=== PATIENT | male | born 1960 | race Caucasian/White ===

== ENCOUNTER 2016-12-09 05:04 | Emergency (ER) | payer MEDICARE, OTHER ==
[~2016-12-09] VITALS: Ht 177.8 cm; Wt 85.9 kg
[~2016-12-09 05:04] MED LIST: BISA-57 PR; CETI10CA PO; IBUP-1542 PO; LOSA50TA2 PO; MELO-174 PO; OMEP40CA6 PO; POLY17PO6 PO; SIMV40TA2 PO; ZOLP5TAB PO
[2016-12-09 05:10] VITALS: Ht 177.8 cm; Wt 85.9 kg
[2016-12-09] MEDS ORDERED: ONDANSETRON (ODT) 4 MG TAB ODT STA (06:19)
[2016-12-09] MEDS ORDERED: MECL12.574 PO (06:21)
[2016-12-09] MEDS ORDERED: ONDA4TAB14 PO (06:21)
--- NOTE | 2016-12-09 06:22 | ERD ---
ER Documentation Chief Complaint Date/Time DATE: 12/09/16 TIME: 06:22 Chief Complaint dizziness w/vomiting since 2am , hypertension, headache HPI Patient is a 48-year-old male with hypertension who presents with dizziness. The patient said that at 2 AM he woke up and he turned his head to the right side and then "everything started spinning". He had nausea and sweating at the time. His blood pressure was elevated at 168/112. He took his blood pressure medicine and then had one episode of vomiting. He said when he keeps his head straight he is fine but when he turns his head to the right side he feels the spinning. He did not pass out. He does have a primary doctor but has not called the primary doctor as of yet. He has had no treatment as of yet. ROS All systems reviewed and are negative except as per history of present illness. Medications Home Meds Active Scripts Ondansetron (Ondansetron Odt) 4 Mg Tab.rapdis, 4 MG PO Q6H Y for NAUSEA AND/OR VOMITING, #30 TAB Prov:TAB DUMAS MD 12/09/16 Meclizine Hcl* (Antivert*) 12.5 Mg Tab, 25 MG PO Q6H Y for DIZZINESS, #20 TAB Prov:TAB DUMAS MD 12/09/16 Bisacodyl* (Dulcolax*) 5 Mg Tablet., 10 MG MI DAILY Y for CONSTIPATION for 3 Days, #10 TAB Prov:FRANCIS ZEPEDA MD 08/26/16 Ibuprofen* (Motrin*) 600 Mg Tab, 600 MG PO Q6H Y for PAIN AND OR ELEVATED TEMP, #30 TAB Prov:FRANCIS ZEPEDA MD 08/26/16 Polyethylene Glycol* (Miralax*) 17 Gm Powd.pack, 17 GM PO DAILY, #30 PACKET Prov:FRANCIS ZEPEDA MD 08/26/16 Ibuprofen* (Motrin*) 600 Mg Tab, 600 MG PO Q6, #30 TAB Prov:HOLA HANSEN, NICK 08/12/16 Reported Medications Omeprazole* (Omeprazole*) 40 Mg Capsule.dr, 40 MG PO DAILY, CAP 08/10/14 Losartan Potassium* (Cozaar*) 50 Mg Tablet, 50 MG PO DAILY, TAB 08/10/14 Simvastatin* (Zocor*) 40 Mg Tablet, 40 MG PO DAILY, TAB 08/10/14 Meloxicam* (Mobic*) 7.5 Mg Tab, 7.5 MG PO DAILY, TAB 08/10/14 Cetirizine Hcl* (Zyrtec*) 10 Mg Capsule, 10 MG PO DAILY Y for ALLERGIC REACTION , TAB 08/10/14 Zolpidem Tartrate* (Ambien*) 5 Mg Tablet, 5 MG PO HS Y for INSOMNIA, TAB 08/10/14 Allergies Allergies: Coded Allergies: No Known Allergy (Unverified , 08/26/16) PMhx/Soc History of Surgery: No Anesthesia Reaction: No Hx Neurological Disorder: No Hx Respiratory Disorders: No Hx Cardiac Disorders: Yes (htn) Hx Psychiatric Problems: No Hx Miscellaneous Medical Probl: Yes (high cholesterol) Hx Substance Use: No Hx Tobacco Use: No FmHx Family History: No diabetes Physical Exam Vitals Vital Signs Date Time Temp Pulse Resp B/P Pulse Ox O2 Delivery O2 Flow Rate FiO2 12/09/16 06:38 77 20 140/76 99 Room Air 12/09/16 05:10 98.8 76 20 162/99 99 Physical Exam Const: No acute distress Head: Atraumatic Eyes: Normal Conjunctiva ENT: Normal External Ears, Nose and Mouth. Neck: Full range of motion..~ No meningismus. Resp: Clear to auscultation bilaterally Cardio: Regular rate and rhythm, no murmurs Abd: Soft, non tender, non distended. Normal bowel sounds Skin: No petechiae or rashes Back: No midline or flank tenderness Ext: No cyanosis, or edema Neur: Awake and alert, cranial nerves II through XII intact, no slurred speech, strength is 5 out of 5 in all 4 extremities, finger to nose is normal bilaterally Psych: Normal Mood and Affect Results 24 hrs Current Medications Medications (Trade) Dose Ordered Sig/Sharad Route PRN Reason Start Time Stop Time Status Last Admin Dose Admin Meclizine HCl (Antivert) 25 mg ONCE ONCE PO 12/09/16 06:30 12/09/16 06:31 DC 12/09/16 06:33 Ondansetron HCl (Zofran Odt) 4 mg ONCE STAT ODT 12/09/16 06:19 12/09/16 06:20 DC 12/09/16 06:33 Procedures/MDM EKG read by me: Rate/Rhythm: Regular rate and rhythm at a rate of 74 Intervals: Normal Impression: No evidence of ischemia or arrhythmia Patient is a 56-year-old male presents with what appears to be acute vertigo. His symptoms are very consistent with benign positional vertigo. I believe that outpatient management is appropriate. The patient was given meclizine and Zofran. At this point I doubt intracranial hemorrhage or stroke. I doubt intra -cranial mass. I believe the risks of doing a CT scan of the brain outweigh the benefits given the risk of radiation. The patient can follow-up with his primary doctor within 24-48 hours. He can return sooner for any worsening symptoms. His EKG shows no signs of ischemia and I doubt acute coronary syndrome or arrhythmia. Departure Diagnosis: Primary Impression: Vertigo Additional Impression: Dizziness Condition: Fair Patient Instructions: Vertigo, Unspecified Additional Instructions: Call your primary care doctor TOMORROW for an appointment during the next 1-2 days.See the doctor sooner or return here if your condition worsens before your appointment time. TAB DUMAS MD Dec 09, 2016 06:22
[2016-12-09] MEDS ORDERED: MECLIZINE 12.5 MG TAB PO ONE (06:30)
[2016-12-09 06:38] VITALS: BP 140/76; PULSE 77; RESP 20
== END 2016-12-09 06:39 | disposition home or self-care (01) ==
LOC: E/R 05:04
DX: R42 Dizziness and giddiness (principal); R40.2252 Coma scale, best verbal response, oriented, at arrival to emergency department; R11.2 Nausea with vomiting, unspecified; I10 Essential (primary) hypertension; R40.2142 Coma scale, eyes open, spontaneous, at arrival to emergency department; R40.2362 Coma scale, best motor response, obeys commands, at arrival to emergency department
CPT/HCPCS: 93005

== ENCOUNTER 2017-08-02 11:04 | Emergency (ER) | payer MEDICARE, OTHER ==
[~2017-08-02] VITALS: Ht 182.9 cm; Wt 83.5 kg
[~2017-08-02 11:04] MED LIST changes: +MECL12.574 PO; +ONDA4TAB14 PO
[2017-08-02 11:08] VITALS: Ht 182.9 cm; Wt 83.5 kg
--- NOTE | 2017-08-02 12:14 | ERD ---
ER Documentation Chief Complaint Chief Complaint pain/burning with urination and fever x 1 week HPI The patient is a 57-year-old male, presenting to the ER because of painful urination with subjective fever for 1 week. He denies other symptoms previously , denies headache, neck pain, chest pain, abdominal pain. He does not smoke, drinks socially Past medical history/surgical history: None ROS All systems reviewed and are negative except as per history of present illness. Medications Home Meds Active Scripts Phenazopyridine Hcl* (Pyridium*) 200 Mg Tab, 200 MG PO TID Y for URINARY PAIN, # 6 TAB Prov:FRANCIS ZEPEDA MD 08/02/17 Ciprofloxacin Hcl* (Ciprofloxacin Hcl*) 500 Mg Tablet, 500 MG PO BID for 10 Days , TAB Prov:FRANCIS ZEPEDA MD 08/02/17 Ondansetron (Ondansetron Odt) 4 Mg Tab.rapdis, 4 MG PO Q6H Y for NAUSEA AND/OR VOMITING, #30 TAB Prov:TAB DUMAS MD 12/09/16 Meclizine Hcl* (Antivert*) 12.5 Mg Tab, 25 MG PO Q6H Y for DIZZINESS, #20 TAB Prov:TAB DUMAS MD 12/09/16 Bisacodyl* (Dulcolax*) 5 Mg Tablet.dr, 10 MG VT DAILY Y for CONSTIPATION for 3 Days, #10 TAB Prov:FRANCIS ZEPEDA MD 08/26/16 Ibuprofen* (Motrin*) 600 Mg Tab, 600 MG PO Q6H Y for PAIN AND OR ELEVATED TEMP, #30 TAB Prov:FRANCIS ZEPEDA MD 08/26/16 Polyethylene Glycol* (Miralax*) 17 Gm Powd.pack, 17 GM PO DAILY, #30 PACKET Prov:FRANCIS ZEPEDA MD 08/26/16 Ibuprofen* (Motrin*) 600 Mg Tab, 600 MG PO Q6, #30 TAB Prov:HOLA HANSEN, NICK 08/12/16 Reported Medications Omeprazole* (Omeprazole*) 40 Mg Capsule.dr, 40 MG PO DAILY, CAP 08/10/14 Losartan Potassium* (Cozaar*) 50 Mg Tablet, 50 MG PO DAILY, TAB 08/10/14 Simvastatin* (Zocor*) 40 Mg Tablet, 40 MG PO DAILY, TAB 08/10/14 Meloxicam* (Mobic*) 7.5 Mg Tab, 7.5 MG PO DAILY, TAB 08/10/14 Cetirizine Hcl* (Zyrtec*) 10 Mg Capsule, 10 MG PO DAILY Y for ALLERGIC REACTION , TAB 08/10/14 Zolpidem Tartrate* (Ambien*) 5 Mg Tablet, 5 MG PO HS Y for INSOMNIA, TAB 08/10/14 Allergies Allergies: Coded Allergies: No Known Allergy (Unverified , 08/02/17) PMhx/Soc Medical and Surgical Hx: pt denies Surgical Hx History of Surgery: No Anesthesia Reaction: No Hx Neurological Disorder: No Hx Respiratory Disorders: No Hx Cardiac Disorders: Yes (htn) Hx Psychiatric Problems: No Hx Miscellaneous Medical Probl: Yes (high cholesterol) Hx Substance Use: No Hx Tobacco Use: No Smoking Status: Never smoker Physical Exam Vitals Vital Signs Date Time Temp Pulse Resp B/P Pulse Ox O2 Delivery O2 Flow Rate FiO2 08/02/17 11:08 98.1 92 19 156/94 99 Physical Exam Const: No acute distress. Head: Atraumatic. Eyes: Normal Conjunctiva. ENT: Normal External Ears, Nose and Mouth. Neck: Full range of motion. No meningismus. Resp: Clear to auscultation bilaterally. Cardio: Regular rate and rhythm. Abd: Soft, non distended, normal bowel sounds, non tender. Skin: No petechiae or rashes. Back: No midline or flank tenderness. Ext: No cyanosis, or edema. Neur: Awake and alert. No focal deficit Psych: Normal Mood and Affect. Results 24 hrs Laboratory Tests Test 08/02/17 12:47 Bedside Urine pH (LAB) 5.5 Bedside Urine Protein (LAB) 1+ Bedside Urine Glucose (UA) Negative Bedside Urine Ketones (LAB) Negative Bedside Urine Blood 2+ Bedside Urine Nitrite (LAB) Negative Bedside Urine Leukocyte Esterase (L 2+ Procedures/MDM MEDICAL MAKING DECISION: The patient is a 57-year-old male, presenting with acute cystitis. He is stable for outpatient follow-up. The differential diagnoses considered include but are not limited to cholelithiasis, cholecystitis, cystitis, pancreatitis, hepatitis, gastritis, peptic ulcer disease, gastric ulcer, appendicitis, diverticulitis, cholangitis, choledocholithiasis, partial small bowel obstruction. Departure Diagnosis: Primary Impression: UTI (urinary tract infection) Condition: Good Comments He was discharged with Cipro and Pyridium The patient's blood pressure was elevated (>120/80) but appears stable without evidence of hypertension emergency or urgency. The patient was counseled about the risks of hypertension and urged to pursue outpatient monitoring and therapy within a week with their primary care physician. I discussed the findings with the patient. I advised the patient to follow-up with the primary physician in about 1-2 days, sooner if needed and return if any concern. Disclaimer: Inadvertent spelling and grammatical errors are likely due to EHR/ dictation software use and do not reflect on the overall quality of patient care. Also, please note that the electronic time recorded on this note does not necessarily reflect the actual time of the patient encounter. FRANCIS ZEPEDA MD Aug 02, 2017 12:14
[2017-08-02 12:48] LABS: URINE BLOOD (Dip) POC 2+ (NEGATIVE)
[2017-08-02] MEDS ORDERED: PHEN-538 PO (13:15)
[2017-08-02] MEDS ORDERED: CIPR500T4 PO (13:15)
== END 2017-08-02 13:31 | disposition home or self-care (01) ==
LOC: FTE 11:04
DX: N39.0 Urinary tract infection, site not specified (principal); I10 Essential (primary) hypertension
CPT/HCPCS: 81003; 99283